=== PATIENT | male | born 2000 | race Asian ===

== ENCOUNTER 2024-01-13 08:32 | Day surgery (SDC) | payer OTHER ==
[2024-01-13 09:09] LABS: Absolute Eosinophils 0.2 K/uL (0-0.5); Absolute Lymphocytes (CBC) 1.3 K/uL (0.7-4.9); Absolute Monocytes 0.5 K/uL (0.1-1.3); Absolute Neutrophil 3.4 K/uL (1.8-8.0); Basophils % 0.7 % (0-1.3); Eosinophils % 3.5 % (0-4.4); Hematocrit 44.4 % (39.6-49.0); Hemoglobin 14.8 g/dL (13.6-17.9); Lymphocytes % 23.9 % (15.3-44.8); MCH 30.5 pg (27.0-35.0); MCHC 33.2 g/dL (32.0-36.0); MCV 91.7 fL (80-100); MPV 9.5 fL (7.6-11.3); Monocytes % 8.5 % (3.3-12.3); Neutrophils % 63.4 % (41.7-73.7); Nucleated Red Blood Cells % 0.1 % (0-0); Platelets 242 thou/uL (152-406); RBC Red Blood Cell Count 4.85 M/uL (4.33-5.43); Red Cell Distribution Width 13.3 % (12.1-15.2)
[2024-01-13] MEDS ORDERED: Ringers Lactate 1,000 ML IV ONE (09:19)
[2024-01-13] MEDS ORDERED: MIDAZOLAM HCL 2 MG/2 ML INJ ONE (09:49)
[2024-01-13] MEDS ORDERED: LIDOCAINE 2% MPF 5 ML VIAL ONE (09:49)
[2024-01-13] MEDS ORDERED: propofoL 200 MG/20 ML VIAL IV ONE (09:49)
[2024-01-13] MEDS ORDERED: FENTANYL CITR 100 MCG/2 ML ONE (09:49)
[2024-01-13] MEDS ORDERED: ONDANSETRON 4 MG/2 ML VIAL ONE (09:49)
[2024-01-13] MEDS ORDERED: CIPROFLOXACIN 400mg IV 400 MG/200 ML BAG IV ONE (10:07)
[2024-01-13] MEDS ORDERED: GLYCOPYRROLATE 0.2 MG/ML SYR ONE (10:19)
[2024-01-13 10:26] VITALS: O2SAT 100
[2024-01-13] MEDS ORDERED: KETOROLAC 30 MG/ML INJ ONE (10:47)
--- NOTE | 2024-01-13 11:19 | P.BOP ---
Preoperative diagnosis: bilateral forearm and left thigh tender subQ massa Postoperative diagnosis: same Primary procedure: Excisional biopsy of tender subQ masses: 1. Right ventral forearm Secondary procedure: 2. Right post prox forearm, 3. Left dorsal forearm, 4. Left prox forearm Other procedure(s): 5. Left inner thigh Estimated blood loss: <20cc Specimen: mass x 5 Findings: mass x 5 Anesthesia: General Complications: None Transferred to: Recovery Room Condition: Good
[2024-01-13 13:10] VITALS: BP 143/73; TEMP 96.5
--- NOTE | 2024-01-13 22:03 | DS ---
Date of Discharge: 01/13/2024 Diagnosis: Bilateral forearm and thigh subcutaneous tender masses. Procedure: Excisional biopsy of bilateral forearm and thigh tender subcutaneous masses. Condition: Stable. Disposition: Home. Activity: As tolerated. No heavy lifting. Follow Up: Follow up in my office in 1 week. Call for appointment at [phone]. Keep area dry for 2 4 hours, then may shower. Avoid trauma to that region. For medications, see orders. JOSE/JOSE Voice ID: [id number] Report ID: [id number]
--- NOTE | 2024-01-13 22:03 | OP ---
Date of Procedure: 01/13/2024 Surgeon: Brad Phan MD Preoperative Diagnosis: Multiple tender subcutaneous masses over the right forearm, left forearm, an d thigh. Postoperative Diagnosis: Multiple tender subcutaneous masses over the right forearm, left forearm, a nd thigh. Procedures: Excisional biopsy of tender subcutaneous masses, 1.Right ventral forearm 4 x 4 cm. 2.Right posterior proximal forearm 2 x 2 cm. 3.Left dorsal forearm 3 x 3 cm. 4.Left proximal forearm 3 x 3 cm. 5.Left inner thigh about 4 x 4 cm. Anesthesia: General plus local. Complications: None. Specimens: x5. Indications For Procedure: This is the case of a 23-year-old patient who comes to us with subcutaneo us masses on multiple sites, all increasing in size and discomfort. He wants all of them removed. T he benefits, alternatives, and risks of excisional biopsy of those lesions were explained, which incl ude, but not limited to infection, bleeding, damage to adjacent structures, anesthesia complication, recurrence of VT, and even . He also understands this may not relieve symptoms, he might need m ore than one surgical intervention. He understood, signed a consent. The patient's areas of concern was marked by me and the patient in the holding room on number through 1-5. Description Of Procedure: The patient was brought to the operating room, placed in supine position. Anesthesia was without complication. Bilateral forearm and thigh were prepped and draped in a steri le fashion. Each procedure was done individually using the same technique, which consisted of sharp incision of the skin and then after that we went all the way down to the subcutaneous tissue __ helped to dissect by blunt dissection, finished the blood supply with Bovie cauterizer. Then, aft er that, I irrigated subcutaneous tissue, injected local anesthetic, closed the subcutaneous tissue w ith 3-0 chromic and then the skin with Dermabond-like glue. Each area was irrigated before closure a nd hemostasis was obtained before closure. We repeat that on all the 5 areas using the same techniqu e. The patient tolerated the procedure well. Sponge count and instrument counts were correct. The patient was sent to recovery in stable condition. JOSE/JOSE Voice ID: [id number] Report ID: [id number]
== END 2024-01-13 12:21 | disposition home or self-care (01) ==
LOC: OR 08:32
PROVIDERS: ATTEND Surgery
PROC: 0JBG0ZZ Excision of Right Lower Arm Subcutaneous Tissue and Fascia, Open Approach (ICD-10-PCS; 2024-01-13)
PROC: 0JBM0ZZ Excision of Left Upper Leg Subcutaneous Tissue and Fascia, Open Approach (ICD-10-PCS; 2024-01-13)
PROC: 0JBH0ZZ Excision of Left Lower Arm Subcutaneous Tissue and Fascia, Open Approach (ICD-10-PCS; principal; 2024-01-13 10:45)
DX: D17.22 Benign lipomatous neoplasm of skin and subcutaneous tissue of left arm (principal); D17.21 Benign lipomatous neoplasm of skin and subcutaneous tissue of right arm; D17.24 Benign lipomatous neoplasm of skin and subcutaneous tissue of left leg; F90.9 Attention-deficit hyperactivity disorder, unspecified type; G47.30 Sleep apnea, unspecified; Z88.0 Allergy status to penicillin
CPT/HCPCS: 85025; 80048; 36415; 88304; 11404 ×2; 11402; 11403 ×2; J2704; J2001; J2250; J3010; J2405; J0744; J7120